=== PATIENT | female | born 1990 | race Caucasian/White ===

== ENCOUNTER → 2017-08-18 | Outpatient (CLI) | payer MEDICAID ==
--- NOTE | 2017-08-18 17:57 | Diagnostic Imaging Report ---
INDICATION: Undergoing anatomical evaluation. TECHNIQUE: Multiple real-time grayscale images were obtained over the gravid uterus. COMPARISON: None. FINDINGS: Single viable intrauterine currently in variable presentation. Cervical length 3.7 cm. Placenta is posterior and without evidence for previa. Visualized anatomical structures are unremarkable. However, the cardiac structures and brain are not well evaluated and visualized secondary to position. Biometrical measurements are as follows: Biparietal 4.67 cm, age 20 weeks 1 days. Head circumference 14.47 cm, age 20 weeks 0 days. Abdominal circumference 15.10 cm, age 20 weeks 3 days. Femur length 3.4 cm, age 20 weeks 6 days. Sonographic estimate age: 20 weeks 3 days. Sonographic estimated date of delivery: 01/02/2018. Estimated Weight: 357 gm (+/- 52 gm). LMP percentile: 26%. heart rate: 135 beats per minute. number: 1 of 1. IMPRESSION: Single viable intrauterine currently in variable presentation. Sonographic estimated age 20 weeks 3 days for an estimated date of delivery 01/02/2018. No abnormality is noted at this time. However, cardiac structures and brain are not able to be well assessed owing to positioning. Dictated by: Dictated on workstation # [id number]
== END ==
LOC: RAD 13:58
PROVIDERS: ATTEND Obstetrics & Gynecology
DX: Z36 Encounter for antenatal screening of mother (principal); Z3A.20 20 weeks gestation of pregnancy
CPT/HCPCS: 76805

== ENCOUNTER 2017-10-14 08:20 | Outpatient (CLI) | payer MEDICAID ==
[~2017-10-14] VITALS: Ht 165.1 cm; Wt 77.6 kg
[2017-10-14 08:35] VITALS: BP 109/64
[2017-10-14] MEDS ORDERED: SERT25TA PO (08:59)
[2017-10-14] MEDS ORDERED: PNV11TAB5 PO (08:59)
[2017-10-14] MEDS ORDERED: FERR-84 PO (08:59)
[2017-10-14] MEDS ORDERED: LOPERAMIDE 2 MG (IMODIUM) CAP PO PRN (09:30)
[2017-10-14] MEDS ORDERED: BUTORPHANOL INJ 2 MG/ML (STADOL) VIAL IV NR (09:30)
[2017-10-14] MEDS ORDERED: ONDANSETRON 4 MG/2 ML (SDV) Z0FRAN IVP NR (09:30)
[2017-10-14] MEDS ORDERED: CATHETER FLUSH 10 ML SYR IV PRN (09:45)
[2017-10-14 09:47] LABS: BASOPHILS % (AUTO) 0 % (0-10); EOSINOPHILS % (AUTO) 0 % (0-10); LYMPHOCYTES # (AUTO) 0.4 X 10^3 (1.0-4.0); LYMPHOCYTES % (AUTO) 3 % (12-44); MEAN CORPUSCULAR HEMOGLOBIN 31 PG (25-34); MEAN CORPUSCULAR HGB CONC 35 G/DL (32-36); MEAN CORPUSCULAR VOLUME 89 FL (80-99); MEAN PLATELET VOLUME 9.8 FL (7.4-10.4); MONOCYTES # (AUTO) 0.5 X 10^3 (0.0-1.0); MONOCYTES % (AUTO) 4 % (0-12); NEUTROPHILS # (AUTO) 10.7 X 10^3 (1.8-7.8); NEUTROPHILS % (AUTO) 92 % (42-75); PLATELET COUNT 181 10^3/uL (130-400); RED BLOOD COUNT 3.45 10^6/uL (4.35-5.85); RED CELL DISTRIBUTION WIDTH 12.4 % (10.0-14.5); WHITE BLOOD COUNT 11.6 10^3/uL (4.3-11.0)
[2017-10-14 10:04] LABS: ALANINE AMINOTRANSFERASE 16 U/L (0-55); ALBUMIN 3.2 GM/DL (3.2-4.5); ANION GAP 9 MMOL/L (5-14); ASPARTATE AMINO TRANSFERASE 16 U/L (5-34); BILIRUBIN,TOTAL 0.5 MG/DL (0.1-1.0); BLOOD UREA NITROGEN 7 MG/DL (7-18); BUN/CREATININE RATIO 11; CALCIUM 8.2 MG/DL (8.5-10.1); CARBON DIOXIDE 20 MMOL/L (21-32); CHLORIDE 108 MMOL/L (98-107); CREATININE SERUM 0.62 MG/DL (0.60-1.30); GFR ESTIMATED > 60; GLUCOSE 87 MG/DL (70-105); POTASSIUM 3.4 MMOL/L (3.6-5.0); SODIUM 137 MMOL/L (135-145); TOTAL PROTEIN 6.5 GM/DL (6.4-8.2)
[2017-10-14 10:15] LABS: BAND NEUTROPHILS 10 %; BASOPHILS % (MANUAL) 0 %; EOSINOPHILS % (MANUAL) 0 %; LYMPHOCYTES % (MANUAL) 4 %; NEUTROPHILS % (MANUAL) 83 %; ROULEAUX SLIGHT
[2017-10-14] MEDS: D5 LR IV SOLUTION 1,000 ML IV SCH ×2 (10:25→12:30)
[2017-10-14 12:10] LABS: BILIRUBIN,URINE NEGATIVE (NEGATIVE); KETONES,URINE 1+ (NEGATIVE); LEUKOCYTE ESTERASE ,URINE 1+ (NEGATIVE); NITRITE,URINE NEGATIVE (NEGATIVE); PH,URINE 9 (5-9); PROTEIN,URINE NEGATIVE (NEGATIVE); UROBILINOGEN,URINE 4 MG/DL (NORMAL)
[2017-10-14 12:25] LABS: SQUAMOUS EPITHELIAL CELL,UR TNTC /HPF; WBC,URINE RARE /HPF
[2017-10-14 14:08] VITALS: BP 93/51
[2017-10-14] MEDS ORDERED: INFLUENZA TRIvalent 2017-2018 0.5 ML/45 MCG SYR IM ONE (15:15)
[2017-10-14] MEDS ORDERED: ONDA8TAB9 PO (15:15)
--- NOTE | 2017-10-15 08:29 | Physician Query-Final Dx ---
HIMANSHU REILLY 10/15/17 0829: Clinic Account Progress/Dx Physician Query: Please give diagnosis Date of Service Oct 14, 2017 at 08:20 SAMY العراقي MD 10/16/17 0802: Clinic Account Progress/Dx DIAGNOSIS: Diagnosis hyperemesis gravidarum HIMANSHU REILLY Oct 15, 2017 08:29 SAMY العراقي MD Oct 16, 2017 08:02
== END 2017-10-14 15:35 | disposition home or self-care (01) ==
LOC: LDRP 08:20 → WSo 08:20
PROVIDERS: ATTEND Obstetrics & Gynecology
DX: O21.9 Vomiting of pregnancy, unspecified (principal); Z3A.30 30 weeks gestation of pregnancy
CPT/HCPCS: 36415; 80053; 81000; 85007; 85027; 87088; 96361; 96374; 96375; 99213

== ENCOUNTER 2017-12-21 02:03 | Outpatient (CLI) | payer MEDICAID ==
[~2017-12-21] VITALS: Ht 165.1 cm; Wt 88.6 kg
[~2017-12-21 02:03] MED LIST: FERR-84 PO; ONDA8TAB9 PO; PNV11TAB5 PO; SERT25TA PO
[2017-12-21 02:20] VITALS: BP 121/64
[2017-12-21 02:53] VITALS: BP 121/64
--- NOTE | 2017-12-22 15:53 | Physician Query-Final Dx ---
HIMANSHU REILLY 12/22/17 1553: Clinic Account Progress/Dx Physician Query: Please give diagnosis Date of Service Dec 21, 2017 at 02:03 SAMY العراقي MD 12/23/17 0803: Clinic Account Progress/Dx DIAGNOSIS: Diagnosis leukorrhea HIMANSHU REILLY Dec 22, 2017 15:53 SAMY العراقي MD Dec 23, 2017 08:03
[2017-12-23] MEDS ORDERED: ACHD5005 PO (17:12)
[2017-12-23] MEDS ORDERED: DOCU100C37 PO (17:12)
[2017-12-23] MEDS ORDERED: IBUP-1773 PO (17:12)
[2017-12-23] MEDS ORDERED: Benzocaine/Menthol TP (17:12)
== END 2017-12-21 02:53 | disposition home or self-care (01) ==
LOC: LDRP 02:03 → WSo 02:03
PROVIDERS: ATTEND Obstetrics & Gynecology
DX: O99.89 Other specified diseases and conditions complicating pregnancy, childbirth and the puerperium (principal); N89.8 Other specified noninflammatory disorders of vagina; Z3A.38 38 weeks gestation of pregnancy
CPT/HCPCS: 99214

== ENCOUNTER 2017-12-22 19:25 | Inpatient (IN) | payer MEDICAID ==
[~2017-12-22] VITALS: Ht 165.1 cm; Wt 87.1 kg
[2017-12-22 19:25] VITALS: BP 132/79
--- OUTSIDE RECORDS SUMMARY | 2017-12-22 19:31 | XMS REPORT ---
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 Name Role Phone ALEX TORIBIO CP Unavailable Allergies, Adverse Reactions, Alerts Substance Reaction Event Type Penicillin V Potassium anaphylaxis Drug Allergy Problems Problem Type Condition Code Onset Dates Condition Status Assessment Mucoid otitis media of both ears, unspecified chronicity H65.93 Active Assessment Acute cystitis with hematuria N30.01 Active Problem Episodic tension-type headache, not intractable G44.219 Active Medications Medication Code System Code Instructions Start Date End Date Status Dosage Ciprofloxacin [facility] [address]-23 500 MG Orally twice a day 1 tablet PredniSONE [facility] [address]-26 10 MG (48) Orally Sep 20, 2016 as directed Procedures Procedure Coding System Code Date Office Visit, Est Pt., Level 3 CPT-4 26509 Sep 20, 2016 URINALYSIS, AUTO, W/O SCOPE CPT-4 54261 Sep 20, 2016 Vital Signs Date/Time: Sep 20, 2016 Cardiac Monitoring Heart Rate 90 bpm Weight 148.6 lbs Height 64 in BMI 25.50 Index Blood Pressure Diastolic 66 mmHg Blood Pressure Systolic 124 mmHg Results Name Result Date Reference Range Unit Abnormality Flag UA LONG DIP (IN HOUSE) ----VEL 1+ 20160920 ----NIT neg [id number] ----SG 1.030 20160920 ----KET trace [id number] ----JAMES neg [id number] ----GLU neg [id number] ----Odor no [id number] ----pH 7.0 [id number] ----BLO neg [id number] ----URO 1.0 [id number] ----Protein 2+ [id number] ----Lot # [id number] ----Exp date [id number] ----Clarity turbid [id number] ----Color yellow [id number] Summary Purpose [employer] Submission
--- OUTSIDE RECORDS SUMMARY | 2017-12-22 19:31 | XMS REPORT ---
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 Name Role Phone ALEX TORIBIO CP Unavailable Allergies, Adverse Reactions, Alerts Substance Reaction Event Type Penicillin V Potassium anaphylaxis Drug Allergy Problems Problem Type Condition Code Onset Dates Condition Status Assessment Episodic tension-type headache, not intractable G44.219 Active Assessment Otitis media with effusion, bilateral H65.93 Active Problem Episodic tension-type headache, not intractable G44.219 Active Assessment Acute cystitis with hematuria N30.01 Active Medications Medication Code System Code Instructions Start Date End Date Status Dosage Ciprofloxacin [facility] [address]-48 500 MG Orally twice a day Sep 17, 2016 Sep 24, 2016 1 tablet Procedures Procedure Coding System Code Date URINALYSIS, AUTO, W/O SCOPE CPT-4 76982 Sep 17, 2016 TORADOL (IM) 60 MG/2ML (UP TO 15 MG) CPT-4 J1885 Sep 17, 2016 URINE CULTURE/COLONY COUNT CPT-4 28896 Sep 17, 2016 Office Visit, Est Pt., Level 3 CPT-4 54038 Sep 17, 2016 THER/PROPH/DIAG INJ, SC/IM CPT-4 48342 Sep 17, 2016 Vital Signs Date/Time: Sep 17, 2016 Cardiac Monitoring Heart Rate 72 bpm Weight 146.6 lbs Height 64 in BMI 25.16 Index Blood Pressure Diastolic 78 mmHg Blood Pressure Systolic 110 mmHg Results Name Result Date Reference Range Unit Abnormality Flag UA LONG DIP (IN HOUSE) ----VEL 1+ 20160917 ----NIT neg [id number] ----SG 1.020 20160917 ----KET neg 20160917 ----JAMES neg [id number] ----GLU neg 20160917 ----Odor no 20160917 ----pH 7.5 20160917 ----BLO 1+ 20160917 ----URO 0.2 20160917 ----Protein neg 20160917 ----Lot # [id number] ----Exp date [id number] ----Clarity clear 20160917 ----Color yellow [id number] Summary Purpose [employer] Submission
--- OUTSIDE RECORDS SUMMARY | 2017-12-22 19:31 | XMS REPORT | Continuity of Care Document ---
Author Author [facility] Organization [facility] Address Unknown Phone Unavailable Allergies Active Description Code Type Severity Reaction Onset Reported/Identified Relationship to Patient Clinical Status Yes penicillinase [id number] Drug Allergy Unknown N/A 12/26/2015 Medications There is no data. Problems Date Dx Coded Attending Type Code Diagnosis Diagnosed By 12/26/2015 CORETTA LIND MD Ot F17.210 NICOTINE DEPENDENCE, CIGARETTES, UNCOMPL 12/26/2015 CORETTA LIND MD Ot R06.4 HYPERVENTILATION 09/02/2017 ALENA PAREDES DO Ot Z36 ENCOUNTER FOR SCREENING OF MOT 09/02/2017 ALENA PAREDES DO Ot Z3A.20 20 WEEKS GESTATION OF 10/14/2017 SAMY العراقي MD, Ot O21.9 VOMITING OF , UNSPECIFIED 10/14/2017 SAMY العراقي MD, Ot Z3A.30 30 WEEKS GESTATION OF Procedures There is no data. Results Test Result Range Complete urinalysis with reflex to culture - 10/14/17 08:35 Urine color determination YELLOW NRG Urine clarity determination CLEAR NRG Urine pH measurement by test strip 9 5-9 Specific gravity of urine by test strip 1.015 1.016- 1.022 Urine protein assay by test strip, semi-quantitative NEGATIVE NEGATIVE Urine glucose detection by automated test strip NEGATIVE NEGATIVE Erythrocytes detection in urine sediment by light microscopy NEGATIVE NEGATIVE Urine ketones detection by automated test strip 1+ NEGATIVE Urine nitrite detection by test strip NEGATIVE NEGATIVE Urine total bilirubin detection by test strip NEGATIVE NEGATIVE Urine urobilinogen measurement by automated test strip (mass/volume) 4 mg/dL NORMAL Urine leukocyte esterase detection by dipstick 1+ NEGATIVE Automated urine sediment erythrocyte count by microscopy (number/high power field) NONE NRG Automated urine sediment leukocyte count by microscopy (number/high power field ) RARE NRG Bacteria detection in urine sediment by light microscopy TRACE NRG Squamous epithelial cells detection in urine sediment by light microscopy TNTC NRG Crystals detection in urine sediment by light microscopy NONE NRG Casts detection in urine sediment by light microscopy NONE NRG Mucus detection in urine sediment by light microscopy NEGATIVE NRG Complete urinalysis with reflex to culture NO NRG Bacterial urine culture - 10/14/17 08:35 URINE CULTURE RESULTS <10,000/ML NRG Complete blood count (CBC) with automated white blood cell (WBC) differential - 10/14/17 09:39 Blood leukocytes automated count (number/volume) 11.6 10*3/uL 4.3-11.0 Blood erythrocytes automated count (number/volume) 3.45 10*6/uL 4.35-5.85 Venous blood hemoglobin measurement (mass/volume) 10.8 g/dL 11.5-16.0 Blood hematocrit (volume fraction) 31 % 35-52 Automated erythrocyte mean corpuscular volume 89 [foz_us] 80-99 Automated erythrocyte mean corpuscular hemoglobin (mass per erythrocyte) 31 pg 25-34 Automated erythrocyte mean corpuscular hemoglobin concentration measurement ( mass/volume) 35 g/dL 32-36 Automated erythrocyte distribution width ratio 12.4 % 10.0-14.5 Automated blood platelet count (count/volume) 181 10*3/uL 130-400 Automated blood platelet mean volume measurement 9.8 [foz_us] 7.4-10.4 Automated blood neutrophils/100 leukocytes 92 % 42-75 Automated blood lymphocytes/100 leukocytes 3 % 12-44 Blood monocytes/100 leukocytes 4 % 0-12 Automated blood eosinophils/100 leukocytes 0 % 0-10 Automated blood basophils/100 leukocytes 0 % 0-10 Blood neutrophils automated count (number/volume) 10.7 10*3 1.8-7.8 Blood lymphocytes automated count (number/volume) 0.4 10*3 1.0-4.0 Blood monocytes automated count (number/volume) 0.5 10*3 0.0-1.0 Automated eosinophil count 0.0 10*3/uL 0.0-0.3 Automated blood basophil count (count/volume) 0.0 10*3/uL 0.0-0.1 Comprehensive metabolic panel - 10/14/17 09:39 Serum or plasma sodium measurement (moles/volume) 137 mmol/L 135-145 Serum or plasma potassium measurement (moles/volume) 3.4 mmol/L 3.6-5.0 Serum or plasma chloride measurement (moles/volume) 108 mmol/L 98-107 Carbon dioxide 20 mmol/L 21-32 Serum or plasma anion gap determination (moles/volume) 9 mmol/L 5-14 Serum or plasma urea nitrogen measurement (mass/volume) 7 mg/dL 7-18 Serum or plasma creatinine measurement (mass/volume) 0.62 mg/dL 0.60-1.30 Serum or plasma urea nitrogen/creatinine mass ratio 11 NRG Serum or plasma creatinine measurement with calculation of estimated glomerular filtration rate > NRG Serum or plasma glucose measurement (mass/volume) 87 mg/dL 70-105 Serum or plasma calcium measurement (mass/volume) 8.2 mg/dL 8.5-10.1 Serum or plasma total bilirubin measurement (mass/volume) 0.5 mg/dL 0.1-1.0 Serum or plasma alkaline phosphatase measurement (enzymatic activity/volume) 98 U/L 40-136 Serum or plasma aspartate aminotransferase measurement (enzymatic activity/ volume) 16 U/L 5-34 Serum or plasma alanine aminotransferase measurement (enzymatic activity/volume ) 16 U/L 0-55 Serum or plasma protein measurement (mass/volume) 6.5 g/dL 6.4-8.2 Serum or plasma albumin measurement (mass/volume) 3.2 g/dL 3.2-4.5 Blood manual differential performed detection - 10/14/17 09:39 Blood monocytes/100 leukocytes 3 % NRG Manual blood segmented neutrophils/100 leukocytes 83 % NRG Blood band neutrophils/100 leukocytes 10 % NRG Manual blood lymphocytes/100 leukocytes 4 % NRG Manual eosinophils/100 leukocytes in nose 0 % NRG Manual blood basophils/100 leukocytes 0 % NRG Blood toxic granules detection by light microscopy 1+ NRG Blood rouleaux detection by light microscopy SLIGHT NRG Encounters ACCT No. Visit Date/Time Discharge Status Pt. Type Provider Facility Loc./Unit Complaint [id number] 10/14/2017 08:20:00 10/14/2017 15:35:00 DIS Outpatient SAMY العراقي MD [facility] WSo VOMITING [id number] 08/18/2017 13:58:00 08/18/2017 23:59:59 CLS Outpatient ALENA PAREDES DO [facility] RAD Z33.1 [id number] 12/26/2015 16:07:00 12/26/2015 18:03:00 DIS Emergency DIOGO COMBS, CORETTA Trujillo [facility] ER DIZZINESS,NAUSEA [id number] 12/22/2017 20:00:00 PEN Preadmit ALENA PAREDES DO
[2017-12-22] MEDS ORDERED: D5 LR IV SOLUTION 1,000 ML IV ONE (19:40)
[2017-12-22] MEDS ORDERED: LACTATED RINGERS 1,000 ML IV SCH (19:48)
[2017-12-22] MEDS: D5 LR IV SOLUTION 1,000 ML IV SCH (19:57)
[2017-12-22] MEDS ORDERED: MISOPROSTOL 100 MCG (CYTOTEC) TAB PO ONE (20:00)
[2017-12-22] MEDS ORDERED: MINERAL OIL CONCENTRATE 99.9% 15 ML UDC TOP PRN (20:00)
[2017-12-22] MEDS ORDERED: INFLUENZA TRIvalent 2017-2018 0.5 ML/45 MCG SYR IM ONE (20:30)
[2017-12-22 20:41] LABS: BASOPHILS % (AUTO) 0 % (0-10); EOSINOPHILS # (AUTO) 0.1 10^3/uL (0.0-0.3); EOSINOPHILS % (AUTO) 1 % (0-10); HEMATOCRIT 34 % (35-52); HEMOGLOBIN 11.8 G/DL (11.5-16.0); LYMPHOCYTES # (AUTO) 1.5 X 10^3 (1.0-4.0); LYMPHOCYTES % (AUTO) 12 % (12-44); MEAN CORPUSCULAR HEMOGLOBIN 31 PG (25-34); MEAN CORPUSCULAR HGB CONC 35 G/DL (32-36); MEAN CORPUSCULAR VOLUME 90 FL (80-99); MONOCYTES # (AUTO) 1.2 X 10^3 (0.0-1.0); MONOCYTES % (AUTO) 9 % (0-12); NEUTROPHILS % (AUTO) 78 % (42-75); PLATELET COUNT 169 10^3/uL (130-400); RED BLOOD COUNT 3.76 10^6/uL (4.35-5.85); RED CELL DISTRIBUTION WIDTH 13.8 % (10.0-14.5); WHITE BLOOD COUNT 12.9 10^3/uL (4.3-11.0)
[2017-12-22 20:41] LABS: BILIRUBIN,URINE NEGATIVE (NEGATIVE); CLARITY,URINE CLEAR; COLOR,URINE YELLOW; GLUCOSE, URINE (UA) NEGATIVE (NEGATIVE); KETONES,URINE NEGATIVE (NEGATIVE); LEUKOCYTE ESTERASE ,URINE 1+ (NEGATIVE); NITRITE,URINE NEGATIVE (NEGATIVE); PH,URINE 6 (5-9); PROTEIN,URINE NEGATIVE (NEGATIVE); UROBILINOGEN,URINE NORMAL (NORMAL)
[2017-12-22 20:54] LABS: WBC,URINE 0-2 /HPF
[2017-12-22 22:00] VITALS: BP 111/62
[2017-12-22] MEDS ORDERED: CATHETER FLUSH 10 ML SYR IV SCH (22:00)
[2017-12-22] MEDS ORDERED: HYDROmorphone (DILAUDID) 2 MG/ML VIAL IVP ONE (23:00)
[2017-12-23] VITALS (53 sets, daily range): BP systolic 107–173; BP diastolic 54–119
[2017-12-23] MEDS: MISOPROSTOL 100 MCG (CYTOTEC) TAB PO SCH ×2 (00:30→04:04)
[2017-12-23] MEDS: D5 LR IV SOLUTION 1,000 ML IV SCH ×2 (03:38→11:30)
--- NOTE | 2017-12-23 08:21 | History & Physical-OB ---
OB - Chief Complaint & HPI Date/Time Date of Admission: Date of Admission: Dec 22, 2017 at 7:25 pm Time Seen by Provider: 20:00 Chief Complaint/History OB-Reason for Admission/Chief: Induction of Labor Hx : 3 Hx Para: 2 Expected Date of Delivery: Dec 30, 2017 Gestational Age in Weeks: 39 Indication for induction: maternal discomfort Admission Nurse Assessment Rev: Yes History of Labs A pos Antibody neg RI RPR NR HBsAg NR HIV NR GC neg GBS neg Allergies and Home Medications Allergies Coded Allergies: penicillinase (Verified Allergy, Unknown, 12/26/15) Home Medications Ferrous Sulfate 325 Mg Tablet, 325 MG PO DAILY, (Reported) Roz073/FA/Omega3/Dha/Fish Oil 1 Each Tab.chew, 1 EACH PO DAILY, (Reported) Sertraline HCl 25 Mg Tablet, 25 MG PO DAILY, (Reported) OB - History Hx of Present Care: Yes Ultrasounds: Normal mid trimester US Obstetrical Complications: None Medical Complications: None Delivery History Adverse Rxn to Tranfusion: No Patient Past Medical History n/a Social History/Family History HIV/AIDS: No Recent Infectious Disease Expo: No Sexually Transmitted Disease: No Alcohol Use: Denies Use Recreational Drug Use: No Immunizations Date of Influenza Vaccine: Oct 23, 2017 OB - Admission Exam Physical Exam Vitals: Vital Signs 12/22/17 12/23/17 19:25 04:30 Temp 98.2 Pulse 81 Resp 18 B/P (MAP) 113/56 (75) HEENT: NCAT Heart: Rhythm Normal Lungs: Clear Abdomen: Gravid Extremities: Normal Reflexes: Normal Cervical Dilatation: 3cm Effacement: 75% Station: -1 Membranes: Intact Heart Rate: 130's Accelerations: Accelerations Present Decelerations: No Decelerations Short Term Variability: Present Sap Mobility Architect Variability: Average (6-25) Contractions on Admission: < 5 Minutes Apart Intensity: Moderate Labs Laboratory Tests Test 12/22/17 19:30 12/22/17 20:00 Range/Units White Blood Count 12.9 H 4.3-11.0 10^3/uL Red Blood Count 3.76 L 4.35-5.85 10^6/uL Hemoglobin 11.8 11.5-16.0 G/DL Hematocrit 34 L 35-52 % Mean Corpuscular Volume 90 80-99 FL Mean Corpuscular Hemoglobin 31 25-34 PG Mean Corpuscular Hemoglobin Concent 35 32-36 G/DL Red Cell Distribution Width 13.8 10.0-14.5 % Platelet Count 169 130-400 10^3/uL Mean Platelet Volume 11.0 H 7.4-10.4 FL Neutrophils (%) (Auto) 78 H 42-75 % Lymphocytes (%) (Auto) 12 12-44 % Monocytes (%) (Auto) 9 0-12 % Eosinophils (%) (Auto) 1 0-10 % Basophils (%) (Auto) 0 0-10 % Neutrophils # (Auto) 10.0 H 1.8-7.8 X 10^3 Lymphocytes # (Auto) 1.5 1.0-4.0 X 10^3 Monocytes # (Auto) 1.2 H 0.0-1.0 X 10^3 Eosinophils # (Auto) 0.1 0.0-0.3 10^3/uL Basophils # (Auto) 0.0 0.0-0.1 10^3/uL Urine Color YELLOW Urine Clarity CLEAR Urine pH 6 5-9 Urine Specific [place] 1.020 1.016-1.022 Urine Protein NEGATIVE NEGATIVE Urine Glucose (UA) NEGATIVE NEGATIVE Urine Ketones NEGATIVE NEGATIVE Urine Nitrite NEGATIVE NEGATIVE Urine Bilirubin NEGATIVE NEGATIVE Urine Urobilinogen NORMAL NORMAL MG/DL Urine Leukocyte Esterase 1+ H NEGATIVE Urine RBC (Auto) NEGATIVE NEGATIVE Urine RBC NONE /HPF Urine WBC 0-2 /HPF Urine Squamous Epithelial Cells 10-25 H /HPF Urine Crystals NONE /LPF Urine Bacteria NONE /HPF Urine Casts NONE /LPF Urine Mucus NEGATIVE /LPF Urine Culture Indicated NO OB - Assessment/Plan/Diagnosis Assessment Assessment: induction of labor Plan Induction Method: per Misoprostol Protocol Other Plan Cytotec overnight PO, followed by AROM in the AM. Discharge Diagnosis Diagnosis: 27 yo @39 weeeks Induction of labor GBS neg ALENA PAREDES DO Dec 23, 2017 8:21 am
[2017-12-23] MEDS ORDERED: SUFENTA 0.6MCG/ML BUPIVA 0.125 100 ML ONE (08:34)
[2017-12-23] MEDS ORDERED: fentaNYL INJECTION 100 MCG/2 ML AMP ONE (08:48)
[2017-12-23] MEDS ORDERED: BUPIVACAINE 0.25% 30 ML (SENSORCAINE) VIAL ONE (08:48)
[2017-12-23] MEDS ORDERED: LIDOCAINE PF 2% 5 ML (XYLOCAINE) VIAL ONE (08:48)
[2017-12-23] MEDS ORDERED: LACTATED RINGERS 1,000 ML IV SCH (09:14)
[2017-12-23] MEDS ORDERED: NALOXONE 0.4 MG/ML 1 ML (NARCAN) VIAL IV PRN (09:15)
[2017-12-23] MEDS ORDERED: ONDANSETRON 4 MG/2 ML (SDV) Z0FRAN IV PRN (09:15)
[2017-12-23] MEDS ORDERED: diphenhydrAMINE 50 MG/ML INJ (BENADRYL) IV PRN (09:15)
[2017-12-23] MEDS ORDERED: EPIDURAL (SUFENTA 0.6MCG/ML BUPIVA 0.125%) 100 ML BAG EPI PRN (09:15)
[2017-12-23] MEDS ORDERED: OXYTOCIN/NORMAL SALINE 500 ML IV ONE ×2 (11:24→13:46)
[2017-12-23] MEDS ORDERED: METHYLERGONOVINE 0.2 MG/ML (METHERGINE) AMP ONE (13:05)
[2017-12-23] MEDS ORDERED: OXYTOCIN/NORMAL SALINE 500 ML IV SCH ×2 (13:53)
[2017-12-23] MEDS ORDERED: METHYLERGONOVINE 0.2 MG/ML (METHERGINE) AMP IM ONE (14:00)
[2017-12-23] MEDS ORDERED: BENZOCAINE/MENTHOL (DERMOPLAST) 56 ML CAN TP PRN (14:00)
[2017-12-23] MEDS ORDERED: WITCH HAZEL(TUCKS) 40 EA JAR TOP PRN (14:00)
[2017-12-23] MEDS ORDERED: TETANUS,DIPTH,PERTUSS P/F (BOOSTRIX) 0.5 ML VIAL IM ONE (14:00)
[2017-12-23] MEDS ORDERED: CATHETER FLUSH 10 ML SYR IV SCH (14:00)
[2017-12-23] MEDS ORDERED: MEASLES,MUMPS,RUBELLA 1 EA INJ SQ ONE (14:00)
[2017-12-23] MEDS ORDERED: HYDROcodone/APAP 5 MG/325 MG (LORTAB) TAB PO PRN (14:00)
[2017-12-23] MEDS ORDERED: DIBUCAINE (NUPERCAINAL) 1% OINT 30 GM TOP PRN (14:00)
--- NOTE | 2017-12-23 14:07 | OB Labor & Delivery Record ---
L&D History Date of Service Date of Service: Dec 23, 2017 History Expected Date of Delivery: Dec 30, 2017 Gestational Age in Weeks: 39 Hx : 3 Hx Para: 2 Complications Events: Routine care Operative Indications (Cesarea: N/A-Vaginal Delivery Intrapartal Events: None L&D Stage1 Stage One Onset of Labor - Date: Dec 23, 2017 Monitors and Tracing Monitor Mode: External Heart Rate: 120 Monitor Accelerations: Uniform Station: 0 Long-Term Variability: Average (6-10) Short Term Variability: Present Presentation: Vertex Vital Signs VS - Last 72 Hours, by Label 12/22/17 12/22/17 12/23/17 12/23/17 19:25 22:00 00:00 02:00 Temp 98.4 98.2 98.4 Pulse 117 87 90 92 Resp 18 B/P (MAP) 132/79 (96) 111/62 (78) 108/60 (76) 107/54 (71) 12/23/17 12/23/17 12/23/17 12/23/17 04:30 08:15 08:35 08:52 Temp 98.2 98.1 Pulse 81 74 71 82 Resp 18 18 B/P (MAP) 113/56 (75) 115/70 (85) 120/75 (90) 138/82 (100) 12/23/17 12/23/17 12/23/17 12/23/17 08:54 08:58 09:01 09:04 Pulse 84 84 85 Resp 20 20 20 20 B/P (MAP) 135/73 (93) 121/66 (84) 118/64 (82) 113/68 (83) Pulse Ox 99 99 99 99 12/23/17 12/23/17 12/23/17 09:07 09:10 09:17 Pulse 86 76 93 Resp 20 20 20 B/P (MAP) 122/78 (93) 108/70 (83) 114/76 (89) Pulse Ox 99 97 96 Rupture of Membranes Spontaneous Ruture of Membrane: No Amniotic Membrane Rupture Time: 08:15 Amniotic Membrane Fluid Desc.: Clear Vaginal Bleeding Description: Normal Show Induction/Anesthesia Epidural Cath Placement - Time: 0901 L&D Stage2 Stage Two Stage II Date: Dec 23, 2017 Monitors and Tracing Monitor Mode: External Heart Rate: 120 Monitor Accelerations: Uniform Monitor Decelerations: None Crossing Guard Variability: Average (6-10) Short Term Variability: Present Position: Right Occiput Anterior Presentation: Vertex Cord Descript/Complications Cord Vessel Description: 3 Vessels Delivery Type Delivery Method: Spontaneous Vaginal Anterior Shoulder: Right Episiotomy/Perineal Laceration Laceraction(s)/Extensions: Yes Degree (describe repair) bilateral periurethral lacerations repaired using 3-0 rapide in usual fashion Condition of Infant Delivery 1 minute Comment: 8 5 minute Comment: 9 Notes Live female infant weight 9lbs 4 oz Condition of Condition of Infant: Living Exam: No Observed Abnormalities Resuscitation Resuscitation: N/A - Spontaneous Resp L&D Stage3 Stage Three Stage III Date: Dec 23, 2017 Pictocin Pitocin Administration Comment: 30 mu wide open at delviery of placenta 0.2 mg of methergine IM given due to persistent boggyness of the uterus, this helped with tone and bleeding slowed down Placenta Delivery Placenta Delivery: Spontaneous Delivery Summary Summary Estimated blood loss (mL): 400 Attending at delivery: Alena Paredes DO Condition of Delivery Examined: Cervix Examined, Uterus Explored Post Hemorrhage: No Condition of Mother stable Condition of (s) stable ALENA PAREDES DO Dec 23, 2017 14:07
[2017-12-23] MEDS: IBUPROFEN 600 MG (MOTRIN) TAB PO SCH ×2 (16:26→21:34)
[2017-12-23] MEDS ORDERED: Benzocaine/Menthol TP (17:12)
[2017-12-23] MEDS ORDERED: ACHD5005 PO (17:12)
[2017-12-23] MEDS ORDERED: DOCU100C37 PO (17:12)
[2017-12-23] MEDS ORDERED: IBUP-1773 PO (17:12)
[2017-12-23] MEDS: DOCUSATE SODIUM 100 MG (COLACE) CAP PO SCH (21:35)
[2017-12-24 04:10] VITALS: BP 102/66
[2017-12-24] MEDS: IBUPROFEN 600 MG (MOTRIN) TAB PO SCH ×4 (04:10→22:13)
[2017-12-24 05:55] LABS: BASOPHILS % (AUTO) 0 % (0-10); EOSINOPHILS # (AUTO) 0.1 10^3/uL (0.0-0.3); EOSINOPHILS % (AUTO) 1 % (0-10); HEMATOCRIT 30 % (35-52); HEMOGLOBIN 10.5 G/DL (11.5-16.0); LYMPHOCYTES # (AUTO) 0.8 X 10^3 (1.0-4.0); LYMPHOCYTES % (AUTO) 11 % (12-44); MEAN CORPUSCULAR HEMOGLOBIN 32 PG (25-34); MEAN CORPUSCULAR HGB CONC 35 G/DL (32-36); MEAN CORPUSCULAR VOLUME 91 FL (80-99); MEAN PLATELET VOLUME 10.5 FL (7.4-10.4); MONOCYTES % (AUTO) 12 % (0-12); NEUTROPHILS # (AUTO) 5.8 X 10^3 (1.8-7.8); NEUTROPHILS % (AUTO) 76 % (42-75); PLATELET COUNT 132 10^3/uL (130-400); RED BLOOD COUNT 3.33 10^6/uL (4.35-5.85); RED CELL DISTRIBUTION WIDTH 13.4 % (10.0-14.5); WHITE BLOOD COUNT 7.7 10^3/uL (4.3-11.0)
--- NOTE | 2017-12-24 08:31 | Progress Note-Standard ---
Standard Progress Note Progress Notes/Assess & Plan Date Seen by Provider: Dec 24, 2017 Time Seen by Provider: 08:15 Progress/Assessment & Plan Patient doing well, no concerns voiced today. Lochia moderate. Pain well controlled. Ambulating and voiding freely. Vital Sign - Last 24 Hours 12/23/17 12/23/17 12/23/17 12/23/17 08:35 08:52 08:54 08:58 Pulse 71 82 84 Resp 18 20 20 B/P (MAP) 120/75 (90) 138/82 (100) 135/73 (93) 121/66 (84) Pulse Ox 99 99 12/23/17 12/23/17 12/23/17 12/23/17 09:01 09:04 09:07 09:10 Pulse 84 85 86 76 Resp 20 20 20 20 B/P (MAP) 118/64 (82) 113/68 (83) 122/78 (93) 108/70 (83) Pulse Ox 99 99 99 97 12/23/17 12/23/17 12/23/17 12/23/17 09:17 09:20 09:23 09:26 Pulse 93 88 82 83 Resp 20 20 20 20 B/P (MAP) 114/76 (89) 114/65 (81) 114/65 (81) 112/60 (77) Pulse Ox 96 94 96 96 12/23/17 12/23/17 12/23/17 12/23/17 09:33 09:36 10:00 10:03 Pulse 82 81 81 79 Resp 20 20 20 20 B/P (MAP) 114/62 (79) 108/61 (77) 108/61 (77) 113/64 (80) Pulse Ox 96 96 96 96 12/23/17 12/23/17 12/23/17 12/23/17 10:06 10:09 10:12 10:17 Pulse 94 94 89 78 Resp 20 20 20 20 B/P (MAP) 113/64 (80) 113/64 (80) 110/65 (80) 109/60 (76) Pulse Ox 97 97 96 96 12/23/17 12/23/17 12/23/17 12/23/17 10:25 10:28 10:30 10:35 Pulse 87 79 89 80 Resp 20 20 20 20 B/P (MAP) 108/57 (74) 111/62 (78) 120/68 (85) 129/74 (92) Pulse Ox 97 97 97 97 12/23/17 12/23/17 12/23/17 12/23/17 10:45 10:50 10:55 11:00 Pulse 84 90 77 81 Resp 20 20 20 20 B/P (MAP) 119/70 (86) 121/72 (88) 116/73 (87) 120/70 (87) Pulse Ox 97 97 97 98 12/23/17 12/23/17 12/23/17 12/23/17 11:05 11:07 11:15 11:15 Pulse 81 76 80 83 Resp 20 20 20 20 B/P (MAP) 115/68 (84) 123/67 (85) 130/58 (82) 118/76 (90) Pulse Ox 98 98 97 98 12/23/17 12/23/17 12/23/17 12/23/17 11:35 11:50 12:05 12:20 Pulse 86 85 91 88 Resp 20 20 20 20 B/P (MAP) 128/77 (94) 135/81 (99) 140/81 (100) 135/75 (95) Pulse Ox 98 97 97 97 12/23/17 12/23/17 12/23/17 12/23/17 12:35 12:55 13:05 13:20 Pulse 87 95 94 112 Resp 20 20 20 20 B/P (MAP) 138/72 (94) 147/82 (103) 131/63 (85) 173/119 (137) Pulse Ox 99 99 12/23/17 12/23/17 12/23/17 12/23/17 13:34 13:49 14:04 14:19 Pulse 88 88 79 74 Resp 20 20 20 20 B/P (MAP) 120/78 (92) 120/78 (92) 119/75 (90) 128/80 (96) 12/23/17 12/23/17 12/23/17 12/23/17 14:34 15:04 15:19 15:30 Pulse 77 78 97 87 Resp 20 20 20 20 B/P (MAP) 128/84 (99) 127/80 (96) 134/81 (98) 132/83 (99) 12/23/17 12/23/17 12/24/17 18:22 21:35 04:10 Temp 101.9 97.0 96.8 Pulse 87 82 66 Resp 18 18 18 B/P (MAP) 116/69 (85) 111/66 (81) 102/66 (78) Pulse Ox 97 98 O2 Delivery Room Air Room Air Room Air Intake and Output 12/23/17 12/23/17 12/24/17 15:00 23:00 07:00 Intake Total 2500 ml Balance 2500 ml Laboratory Tests Test 12/24/17 05:39 Range/Units White Blood Count 7.7 4.3-11.0 10^3/uL Red Blood Count 3.33 L 4.35-5.85 10^6/uL Hemoglobin 10.5 L 11.5-16.0 G/DL Hematocrit 30 L 35-52 % Mean Corpuscular Volume 91 80-99 FL Mean Corpuscular Hemoglobin 32 25-34 PG Mean Corpuscular Hemoglobin Concent 35 32-36 G/DL Red Cell Distribution Width 13.4 10.0-14.5 % Platelet Count 132 130-400 10^3/uL Mean Platelet Volume 10.5 H 7.4-10.4 FL Neutrophils (%) (Auto) 76 H 42-75 % Lymphocytes (%) (Auto) 11 L 12-44 % Monocytes (%) (Auto) 12 0-12 % Eosinophils (%) (Auto) 1 0-10 % Basophils (%) (Auto) 0 0-10 % Neutrophils # (Auto) 5.8 1.8-7.8 X 10^3 Lymphocytes # (Auto) 0.8 L 1.0-4.0 X 10^3 Monocytes # (Auto) 1.0 0.0-1.0 X 10^3 Eosinophils # (Auto) 0.1 0.0-0.3 10^3/uL Basophils # (Auto) 0.0 0.0-0.1 10^3/uL Diagnosis: PPD 1 NVD P: Routine Pp care, anticipate dc later today or tomorrow morning. ALENA PAREDES DO Dec 24, 2017 8:31 am
[2017-12-24 08:43] VITALS: BP 98/65
[2017-12-24] MEDS: DOCUSATE SODIUM 100 MG (COLACE) CAP PO SCH ×2 (10:30→22:13)
[2017-12-24] MEDS: PRENATAL VITAMIN 1 EA TAB PO SCH (10:31)
[2017-12-24 11:30] VITALS: BP 106/59
--- NOTE | 2017-12-24 13:41 | Anesthesia-Regional Post-Op ---
Regional Patient Condition Mental Status: Alert, Oriented x3 Circulation: Same as Pre-Op Headache: Absent Sensation: Full Recovery Motor Block: Absent Post Op Complications Complications None Follow Up Care/Instructions Patient Instructions None needed. Anesthesia/Patient Condition Patient is doing well, no complaints, stable vital signs, no apparent adverse anesthesia problems. LEXI VELAZQUEZ DO Dec 24, 2017 13:41
[2017-12-24 16:47] VITALS: BP 105/66
[2017-12-24 22:14] VITALS: BP 101/58
[2017-12-25 04:15] VITALS: BP 110/72
[2017-12-25] MEDS: IBUPROFEN 600 MG (MOTRIN) TAB PO SCH ×2 (04:15→11:45)
[2017-12-25 08:00] VITALS: BP 106/58
[2017-12-25] MEDS: DOCUSATE SODIUM 100 MG (COLACE) CAP PO SCH (08:21)
[2017-12-25] MEDS: PRENATAL VITAMIN 1 EA TAB PO SCH (08:21)
[2017-12-25 12:00] VITALS: BP 112/62
== END 2017-12-25 14:30 | disposition home or self-care (01) | DRG 775 ==
LOC: LDRP 19:25
PROVIDERS: ADMIT Obstetrics & Gynecology; ATTEND Obstetrics & Gynecology
PROC: 10E0XZZ Delivery of Products of Conception, External Approach (ICD-10-PCS; principal; 2017-12-23)
PROC: 0UQMXZZ Repair Vulva, External Approach (ICD-10-PCS; 2017-12-23)
DX: O71.82 Other specified trauma to perineum and vulva (principal); O75.89 Other specified complications of labor and delivery; Z3A.39 39 weeks gestation of pregnancy; Z37.0 Single live birth
CPT/HCPCS: 36415; 81000; 85025; 86850; 86900; 86901; 99214

== ENCOUNTER → 2021-03-13 | Outpatient (CLI) | payer BC ==
[~2021-03-13] MED LIST changes: +ACHD5005 PO; +Benzocaine/Menthol TP; +DOCU100C37 PO; +IBUP-1773 PO
--- NOTE | 2021-03-13 16:06 | Diagnostic Imaging Report ---
PROCEDURE: Pelvic comp/transvaginal sonogram. TECHNIQUE: Complete transabdominal and transvaginal pelvic ultrasound was performed. In addition, limited pelvic Doppler was performed. INDICATION: Abnormal uterine bleeding. Uterus is anteverted measuring 7.3 x 3.7 x 4.7 cm. Endometrium is 5 mm in thickness. No myometrial mass is identified. Right ovary measures 3.5 x 2.1 x 2.9 cm and left ovary measures 2.5 x 1.8 x 2.5 cm. There is blood flow to both ovaries. No adnexal mass or free fluid is detected. IMPRESSION: Unremarkable transabdominal and transvaginal pelvic ultrasound. Dictated by: Dictated on workstation # [id number]
== END ==
LOC: RAD 13:00
PROVIDERS: ATTEND Obstetrics & Gynecology
DX: N93.9 Abnormal uterine and vaginal bleeding, unspecified (principal)
CPT/HCPCS: 76830; 76856

== ENCOUNTER → 2022-04-19 | Outpatient (CLI) | payer BC ==
--- NOTE | 2022-04-19 16:24 | Diagnostic Imaging Report ---
EXAMINATION: Magnetic resonance imaging of the right wrist without contrast DATE: April 19, 2022. COMPARISON: None. HISTORY: 32-year-old female, right wrist pain. TECHNIQUE: Magnetic Resonance Imaging sequences were performed of the wrist without contrast. FINDINGS: TRIANGULAR FIBROCARTILAGE COMPLEX: The triangular fibrocartilage disc, dorsal radioulnar ligament, volar radioulnar ligament, ulnolunate ligament, ulnotriquetral ligament, extensor carpi ulnaris tendon and sheath, meniscal homologue are intact. INTRINSIC LIGAMENTS: The scapholunate and lunotriquetral ligaments are intact. JOINTS: The radiocarpal, intercarpal, and distal radioulnar joints are intact. There is no joint effusion. CARPAL TUNNEL: The flexor retinaculum is unremarkable. The flexor digitorum superficialis and profundus are intact. The median nerve is unremarkable. FLEXOR TENDONS: The flexor carpi ulnaris, flexor pollicis longus and carpi radialis are intact. EXTENSOR TENDONS: Radial side extensor tendons are intact including: extensor pollicis longus, extensor carpi radialis brevis, extensor carpi radialis longus, extensor pollicis brevis and abductor pollicis longus. The extensor carpi ulnaris, extensor digitorum, extensor digiti minimi and extensor indicis tendons are intact. BONE: The bones all have normal configuration. The bone marrow signal is within normal limits. Specifically, negative for fracture, osteomyelitis, osteonecrosis, or marrow replacing process. BURSAE AND SOFT TISSUES: The bursae and soft tissues surrounding the wrist are within normal limits. IMPRESSION: 1. Unremarkable MRI of the right wrist. Dictated by: Dictated on workstation # [id number]
== END ==
LOC: RAD 14:45
PROVIDERS: ATTEND Pediatrics
DX: M25.531 Pain in right wrist (principal)
CPT/HCPCS: 73221